=== PATIENT | female | born 1940 ===

== ENCOUNTER 2024-07-07 07:44 | Outpatient (CLI) | payer OTHER | END 2024-07-07 08:10 | disposition home or self-care (01) | LOC: MRI 07:44 | PROVIDERS: ATTEND Anesthesiology | DX: G43.719 Chronic migraine without aura, intractable, without status migrainosus (principal); I11.9 Hypertensive heart disease without heart failure | CPT/HCPCS: 70551 ==

== ENCOUNTER 2024-09-29 08:19 | Outpatient (CLI) | payer OTHER | END 2024-10-10 08:25 | disposition home or self-care (01) | LOC: TOM 08:19 | PROVIDERS: ATTEND Internal Medicine Geriatric Medicine | DX: R05.3 Chronic cough (principal); N60.01 Solitary cyst of right breast; N60.02 Solitary cyst of left breast; Z12.31 Encounter for screening mammogram for malignant neoplasm of breast ==

== ENCOUNTER 2024-09-29 10:14 | Outpatient (CLI) | payer OTHER | END 2024-09-29 10:15 | disposition home or self-care (01) | LOC: NUCLEAR 10:14 | PROVIDERS: ATTEND Specialist | DX: M81.0 Age-related osteoporosis without current pathological fracture (principal) ==

== ENCOUNTER 2024-11-19 09:33 | Outpatient (CLI) | payer OTHER | END 2024-11-19 10:00 | disposition home or self-care (01) | LOC: RAD 09:33 | PROVIDERS: ATTEND Orthopaedic Surgery Adult Reconstructive Orthopaedic Surgery | DX: I11.9 Hypertensive heart disease without heart failure (principal); M17.12 Unilateral primary osteoarthritis, left knee; Z96.651 Presence of right artificial knee joint ==

== ENCOUNTER → 2025-02-03 | Outpatient (CLI) | payer OTHER | END | disposition home or self-care (01) | LOC: SONOGRAMA 10:08 | DX: N18.2 Chronic kidney disease, stage 2 (mild) (principal) ==

== ENCOUNTER → 2025-03-20 | Outpatient (CLI) | payer OTHER | END | disposition home or self-care (01) | LOC: RAD 09:00 | PROVIDERS: ATTEND Orthopaedic Surgery Adult Reconstructive Orthopaedic Surgery | DX: R06.02 Shortness of breath (principal); Z96.653 Presence of artificial knee joint, bilateral ==